=== PATIENT | male | born 1975 | race African-American/Black ===

== ENCOUNTER 2016-11-27 23:55 | Emergency (ER) | payer MEDICARE, OTHER ==
[~2016-11-27] VITALS: Ht 177.8 cm; Wt 90.7 kg
--- NOTE | 2016-11-28 00:52 | PHYS DOC ---
Past Medical History Past Medical History: Anxiety, Depression, Hypertension Past Surgical History: No Surgical History Alcohol Use: None Drug Use: None Adult General Chief Complaint Chief Complaint: foot pain. HPI HPI 41-year-old male presenting with bilateral foot pain after taking a long walk today. He denies any trauma. Onset today. Location bilateral feet. Duration constant. No alleviating or exacerbating factors present. Review of systems is negative for nausea vomiting fevers chills headache syncope. He denies any rashes. All other review of systems is negative unless otherwise noted in history of present illness. ED course: 41-year-old gentleman presenting to the ED with bilateral foot pain after taking a long walk. Vital signs showed chronic hypertension. Afebrile. Physical exam showed normal physical exam. The feet are nontender palpation without ecchymosis laceration or abrasions. Palpable pulse with 2 second cap refill. Normal motor and sensory function. No history of trauma. I recommended he follow up with his doctor in 2 days. The patient was then discharged home in stable condition to follow up with their primary care physician over the next 2- 3 days. They were to return if their symptoms worsened or if they were concerned for any reason. [id number] discharge instructions and return precautions were given. Patient's questions were answered to their satisfaction. Patient is comfortable plan. Review of Systems Review of Systems SEE ABOVE. Physical Exam Physical Exam Constitutional: Well developed, well nourished, no acute distress, non-toxic appearance. [] HENT: Normocephalic, atraumatic, bilateral external ears normal, oropharynx moist, no oral exudates, nose normal. Eyes: PERRLA, EOMI, conjunctiva normal, no discharge. [] Neck: Normal range of motion, no tenderness, supple, no stridor. [] Cardiovascular:Heart rate regular rhythm, no murmur Lungs & Thorax: Bilateral breath sounds clear to auscultation [] Abdomen: Bowel sounds normal, soft, no tenderness, no masses, no pulsatile masses. Skin: Warm, dry, no erythema, no rash. [] Back: No tenderness, no CVA tenderness. [] Extremities: No tenderness, no cyanosis, no clubbing, ROM intact, no edema. See above. Neurologic: Alert and oriented X 3, normal motor function, normal sensory function, no focal deficits noted. Psychologic: Affect normal, judgement normal, mood normal. [] Current Patient Data Vital Signs Vital Signs Date Time Temp Pulse Resp B/P (MAP) Pulse Ox O2 Delivery O2 Flow Rate FiO2 11/28/16 00:04 98.4 99 16 97 Room Air 98.4 EKG EKG [] Radiology/Procedures Radiology/Procedures [] Course & Med Decision Making Course & Med Decision Making Pertinent Labs and Imaging studies reviewed. (See chart for details) [] Dragon Disclaimer Dragon Disclaimer This electronic medical record was generated, in whole or in part, using a voice recognition dictation system. Departure Departure Impression: Primary Impression: Foot pain Additional Impression: Foot pain, bilateral Disposition: HOME, SELF-CARE Condition: STABLE Referrals: NO PCP (PCP) PETER NESBITT MD Additional Instructions: Thank you for allowing us to participate in your care today. Followup with your primary care physician in 3 days if your symptoms do not improve. Call your Primary Doctor tomorrow and inform them of your visit today. If you do not have a primary care provider you can ask for a list of our primary care providers. Return to the emergency department you have any new or concerning findings. This should be evaluated by the primary care physician and any necessary consulting services for continued management within a few days after discharge. Return to emergency room if you have any new or concerning symptoms including but not limited to fever, chills, nausea, vomiting, intractable pain, any new rashes, chest pain, shortness of air, uncontrolled bleeding, difficulty breathing, and/or vision loss. Problem Qualifiers TAYLOR GREEN MD Nov 28, 2016 00:52
[2016-11-28 00:57] VITALS: BP 175/109
== END 2016-11-28 01:35 | disposition home or self-care (01) ==
LOC: ER 23:55
DX: M79.671 Pain in right foot (principal); M79.672 Pain in left foot; I10 Essential (primary) hypertension; F41.9 Anxiety disorder, unspecified; F32.9 Major depressive disorder, single episode, unspecified
CPT/HCPCS: 99283

== ENCOUNTER 2017-04-27 20:58 | Emergency (ER) | payer OTHER ==
[~2017-04-27] VITALS: Ht 182.9 cm; Wt 83.9 kg
--- NOTE | 2017-04-27 21:08 | PHYS DOC ---
Past Medical History Past Medical History: Anxiety, Depression, Hypertension Past Surgical History: No Surgical History Alcohol Use: None Drug Use: None Adult General Chief Complaint Chief Complaint: ANKLE PROBLEM HPI HPI Patient is a 41 year old male who presents with bilateral feet pain. He denies any injury. He states they've been hurting him for a while. He denies fevers chills nausea or vomiting. He denies any past medical history, he denies any allergies meds, denies being on any medications. Review of Systems Review of Systems Constitutional: Denies fever or chills [] Eyes: Denies change in visual acuity, redness, or eye pain [] HENT: Denies nasal congestion or sore throat [] Respiratory: Denies cough or shortness of breath [] Cardiovascular: No additional information not addressed in HPI [] GI: Denies abdominal pain, nausea, vomiting, bloody stools or diarrhea [] : Denies dysuria or hematuria [] Musculoskeletal: Denies back pain or joint pain [] Integument: Complains of sores to feet Neurologic: Denies headache, focal weakness or sensory changes [] Endocrine: Denies polyuria or polydipsia [] All other systems were reviewed and found to be within normal limits, except as documented in this note. Current Medications Current Medications Current Medications Medications (Trade) Dose Ordered Sig/Willa Start Time Stop Time Status Last Admin Dose Admin Diphtheria/ Tetanus/Acell Pertussis (Boostrix) 0.5 ml ONCE ONCE 04/27/17 22:00 04/27/17 22:00 DC Neomycin/ Polymyxin/ Bacitracin (Triple Antibiotic Ointment) 6 pkt 1X ONCE 04/27/17 22:00 04/27/17 22:00 DC Allergies Allergies Allergies Coded Allergies Type Severity Reaction Last Updated Verified No Known Drug Allergies 04/27/17 No Physical Exam Physical Exam Constitutional: Well developed, well nourished, no acute distress, non-toxic appearance. [] HENT: Normocephalic, atraumatic, bilateral external ears normal, oropharynx moist, no oral exudates, nose normal. [] Eyes: PERRLA, EOMI, conjunctiva normal, no discharge. [] Neck: Normal range of motion, no tenderness, supple, no stridor. [] Cardiovascular:Heart rate regular rhythm, no murmur [] Lungs & Thorax: Bilateral breath sounds clear to auscultation [] Abdomen: Bowel sounds normal, soft, no tenderness, no masses, no pulsatile masses. [] Skin: Warm, dry, no erythema, no rash. [] Back: No tenderness, no CVA tenderness. [] Extremities: No tenderness, no cyanosis, no clubbing, ROM intact, no edema. Dry cracking skin on bilateral heels, no open wounds appreciated, dorsal pedis pulse 2+ bilaterally Neurologic: Alert and oriented X 3, normal motor function, normal sensory function, no focal deficits noted. [] Psychologic: Affect normal, judgement normal, mood normal. [] Current Patient Data Vital Signs Vital Signs Date Time Temp Pulse Resp B/P (MAP) Pulse Ox O2 Delivery O2 Flow Rate FiO2 04/27/17 21:10 98.6 107 20 100 Room Air 98.6 EKG EKG [] Radiology/Procedures Radiology/Procedures [] Impressions: Dry cracking feet Course & Med Decision Making Course & Med Decision Making Pertinent Labs and Imaging studies reviewed. (See chart for details) Patient has cracking skin on bilateral feet, no open wounds, he was unsure on his last tetanus shots I've ordered one for him. He can use triple anabolic ointment and Efrain wrap's as needed. Return precautions given. He is to follow-up with his primary care physician. A list was provided for him if he did not have one. He has been ambulating around the emergency department without any difficulty. He states that he wants to rest here however do not have any reasons to keep him in the department since his vitals are stable and he is ambulating without any difficulty. Dragon Disclaimer Dragon Disclaimer This electronic medical record was generated, in whole or in part, using a voice recognition dictation system. Departure Departure Impression: Primary Impression: Foot pain, bilateral Disposition: 01 HOME, SELF-CARE Condition: STABLE Referrals: NO PCP (PCP) Patient Instructions: Foot Contusion Additional Instructions: You were seen today for your try cracking feet. Your given Efrain wraps and antibiotic ointment. You can apply the antibiotic ointment when you're not out walking and use the Efrain wraps when you are walking. Please keep your feet dry. Follow-up with her primary care physician within the next 4-5 days. Return back to ER if you have fevers, and sores, redness, worsening pain or other concerns. WENDY DAS MD Apr 27, 2017 21:08
[2017-04-27 21:10] VITALS: BP 184/92
[2017-04-27] MEDS ORDERED: DIPHTH,PERTUSS(ACELL),TET TOX 0.5 ML DISP.SYRIN. VAX IM ONE (22:00)
[2017-04-27] MEDS ORDERED: NEOMY/BACITR/POLYMYXIN OINT PACKET. TP ONE (22:00)
== END 2017-04-27 21:38 | disposition home or self-care (01) ==
LOC: ER 20:58
DX: M79.672 Pain in left foot (principal); M79.671 Pain in right foot; F41.9 Anxiety disorder, unspecified; I10 Essential (primary) hypertension; F32.9 Major depressive disorder, single episode, unspecified
CPT/HCPCS: 99282; 99283